=== PATIENT | female | born 1990 | race Two or more races ===

== ENCOUNTER 2018-12-18 21:13 | Emergency (ER) | payer MEDICAID ==
[~2018-12-18] VITALS: Ht 162.6 cm; Wt 88.5 kg
[2018-12-18 21:42] VITALS: BP 119/85
== END 2018-12-18 23:59 | disposition left against medical advice (07) ==
LOC: ER 21:13
DX: H57.12 Ocular pain, left eye (principal); Z53.21 Procedure and treatment not carried out due to patient leaving prior to being seen by health care provider